=== PATIENT | female | born 1990 | race Caucasian/White ===

== ENCOUNTER 2019-09-22 09:23 | Emergency (ER) | payer MEDICAID, OTHER ==
[2019-09-22] MEDS ORDERED: Ondansetron 4 MG Tab.DIS PO ONE (10:16)
--- NOTE | 2019-09-22 10:27 | EDM.PDOC ---
ED HPI GENERAL MEDICAL PROBLEM - General Chief Complaint: Respiratory Problem Stated Complaint: COUGH, NAUSEA, VOMITING Time Seen by Provider: 09/22/19 09:50 Source of Information: Reports: Patient History Limitations: Reports: No Limitations - History of Present Illness INITIAL COMMENTS - FREE TEXT/NARRATIVE: 29-year-old otherwise healthy female presents with concerns of cough, headache, fatigue, nausea and vomiting. She reports that symptoms started approximately 2 days ago. She first noted cough, this progressed to include additional symptoms over the last 24 hours. She is feeling quite fatigued. Primary concern is she is having a hard time staying hydrated due to inability to tolerate by mouth. She's been having subjective fevers. She is in the area visiting family, does have one daughter with similar symptoms. She denies any significant pain. No significant dyspnea. Generalized Pain Score (Numeric/FACES): 9 - Related Data Allergies Allergy/AdvReac Type Severity Reaction Status Date / Time No Known Allergies Allergy Verified 09/22/19 09:49 Home Meds: Home Meds Ondansetron [Zofran ODT] 4 mg PO Q6H PRN #5 tab.dis 09/22/19 [Rx] Venlafaxine [Effexor XR 24 Hr] 40 mg PO BEDTIME 09/22/19 [History] Past Medical History HEENT History: Reports: Impaired Vision Gastrointestinal History: Reports: Other (See Below) [employer]GER History: Reports: Neurological History: Reports: Seizure Psychiatric History: Reports: Anxiety, Panic Attack Endocrine/Metabolic History: Reports: Obesity/BMI 30+ - Past Surgical History Head Surgeries/Procedures: Reports: None HEENT Surgical History: Reports: None Cardiovascular Surgical History: Reports: None GI Surgical History: Reports: Appendectomy Endocrine Surgical History: Reports: None Neurological Surgical History: Reports: None Dermatological Surgical History: Reports: None Social & Family History - Tobacco Use Smoking Status *Q: Current Every Day Smoker Years of Tobacco use: 12 Packs/Tins Daily: 0.5 Used Tobacco, but Quit: No Second Hand Smoke Exposure: No - Caffeine Use Caffeine Use: Reports: Coffee - Recreational Drug Use Recreational Drug Use: No ED ROS GENERAL - Review of Systems Review Of Systems: See Below Constitutional: Reports: Fever, Malaise HEENT: Reports: No Symptoms Respiratory: Reports: Cough Cardiovascular: Denies: Chest Pain Endocrine: Reports: No Symptoms GI/Abdominal: Reports: Nausea, Vomiting : Reports: No Symptoms. Denies: Dysuria, Flank Pain Musculoskeletal: Reports: No Symptoms Skin: Reports: No Symptoms Neurological: Reports: Headache Psychiatric: Reports: No Symptoms Hematologic/Lymphatic: Reports: No Symptoms Immunologic: Reports: No Symptoms ED EXAM, GENERAL - Physical Exam Exam: See Below Exam Limited By: No Limitations General Appearance: Alert, No Apparent Distress Ears: Normal External Exam Nose: Normal Inspection Throat/Mouth: Other (mild oropharyngeal erythema) Head: Atraumatic, Normocephalic Neck: Normal Inspection, Full Range of Motion Respiratory/Chest: No Respiratory Distress, Lungs Clear Cardiovascular: No Murmur, Tachycardia GI/Abdominal: Soft, Non-Tender Back Exam: Normal Inspection Extremities: Normal Inspection Neurological: Alert, Oriented, Normal Gait, No Motor/Sensory Deficits Psychiatric: Normal Affect, Normal Mood Skin Exam: Warm, Dry Course - Vital Signs Last Recorded V/S: Last Vital Signs Temp 37.7 C 09/22/19 09:51 Pulse 128 H 09/22/19 09:51 Resp 20 09/22/19 09:51 BP 132/87 09/22/19 09:51 Pulse Ox 97 09/22/19 09:51 - Orders/Labs/Meds Meds: Medications Discontinued Medications Generic Name Dose Route Start Last Admin Trade Name Freq PRN Reason Stop Dose Admin Ondansetron HCl 4 mg 09/22/19 10:16 09/22/19 10:31 Zofran Odt PO 09/22/19 10:17 4 mg ONETIME ONE Administration - Re-Assessments/Exams Free Text/Narrative Re-Assessment/Exam: Otherwise healthy 29-year-old presents with constellations of symptoms consistent with influenza-like illness. On exam she is noted to be tachycardic but no focal source of infection. She is overall fatigued but well-appearing. I do not believe we need to go searching for an occult bacterial infection. we discussed the role of testing for influenza and treating with Tamiflu, patient declining this which is certainly appropriate given the severity of her symptoms and her age. We discussed symptomatic treatment. Giving her a dose of Zofran and reassess to ensure she is able to tolerate by mouth. Expect she'll be safe for discharge with a prescription for ODT Zofran and continued supportive cares. . ll 09/22/19 10:24 Departure - Departure Time of Disposition: 10:38 Disposition: Home, Self-Care 01 Clinical Impression: Influenza-like illness - Discharge Information *PRESCRIPTION DRUG MONITORING PROGRAM REVIEWED*: No *COPY OF PRESCRIPTION DRUG MONITORING REPORT IN PATIENT PRAVIN: No Prescriptions: Ondansetron [Zofran ODT] 4 mg PO Q6H PRN #5 tab.dis PRN Reason: Nausea Instructions: Influenza, Adult, [id number] Referrals: PCP,None [Primary Care Provider] - Forms: ED Department Discharge Additional Instructions: You have the flu or a similar virus. Please continues to push fluid, take the zofran for nausea, and tylenol for headache or fever See a physician for difficulty breathing, high fevers, confusion, or other symptoms which are concerning to you Sepsis Event Note - Evaluation Sepsis Screening Result: No Definite Risk - Focused Exam Vital Signs: Vital Signs Temp Pulse Resp BP Pulse Ox 09/22/19 09:51 37.7 C 128 H 20 132/87 97 Date Exam was Performed: 09/22/19 Time Exam was Performed: 10:39
== END 2019-09-22 10:47 | disposition home or self-care (01) ==
LOC: JP.ED 09:23
DX: J11.1 Influenza due to unidentified influenza virus with other respiratory manifestations (principal); F41.9 Anxiety disorder, unspecified; E66.9 Obesity, unspecified; F17.210 Nicotine dependence, cigarettes, uncomplicated; Z79.899 Other long term (current) drug therapy; Z68.36 Body mass index [BMI] 36.0-36.9, adult
CPT/HCPCS: 99283; A9270